=== PATIENT | female | born 1995 | race Two or more races ===

== ENCOUNTER 2017-03-03 18:14 | Emergency (ER) | payer OTHER ==
[~2017-03-03] VITALS: Ht 170.2 cm; Wt 84.8 kg
[2017-03-03] MEDS ORDERED: ADDERALL 20 MG20 MG ORAL (18:20)
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
[2017-03-03] MEDS ORDERED: Ketorolac 30mg Inj IM ONE (18:45)
[2017-03-03] MEDS ORDERED: Methocarbamol 750mg tab ORAL ONE (18:45)
[2017-03-03] MEDS ORDERED: Norco 10mg/325mg tab ORAL ONE (20:00)
[2017-03-03] MEDS ORDERED: NAPROXEN500 M1 ORAL (21:31)
[2017-03-03] MEDS ORDERED: NORCO 5-325 TA1 EAC1 ORAL (21:31)
[2017-03-03] MEDS ORDERED: ROBAXIN-750750 MG PO (21:31)
[2017-03-03 21:41] VITALS: BP 123/80
[2017-03-03 21:42] VITALS: BP 123/80
--- NOTE | 2017-03-04 09:30 | Diagnostic Imaging Report ---
Indication: PAIN Comparison: None Findings: AP, lateral and coned down views of the lumbar spine shows normal alignment. There are no acute fractures or subluxations. Intervertebral disc spaces are intact. Bony mineralization is normal. An IUD is incidentally noted in the pelvis. Impression: Normal lumbar spine.
== END 2017-03-03 21:44 | disposition home or self-care (01) ==
LOC: EDBD 18:14 → EMR 21:06
DX: S39.012A Strain of muscle, fascia and tendon of lower back, initial encounter (principal); V43.52XA Car driver injured in collision with other type car in traffic accident, initial encounter; Y92.410 Unspecified street and highway as the place of occurrence of the external cause
CPT/HCPCS: 72020; 81025; 96372; 99283; J1885